=== PATIENT | female | born 1965 | race Caucasian/White ===

== ENCOUNTER 2024-12-31 09:55 | Inpatient (IN) | payer SELFPAY ==
[2024-12-31] MEDS ORDERED: PIPERACILLIN /TAZOBACTAM 2.25 G in IV D5W 50 ML IV SCH (12:00)
== END 2024-12-31 11:00 | disposition home or self-care (01) | DRG 951 ==
LOC: ER 09:58 → MS IN 10:02 → TELE IN 10:22
PROVIDERS: ADMIT Nurse Practitioner Acute Care; ATTEND Nurse Practitioner Acute Care
DX: Z00.00 Encounter for general adult medical examination without abnormal findings (principal)
CPT/HCPCS: G0378; J2543; J7060